=== PATIENT | female | born 1975 | race Caucasian/White ===

== ENCOUNTER 2019-12-06 07:18 | Outpatient (CLI) | payer BC, SELFPAY ==
--- NOTE | ~2019-12-06 | MM_ITS ---
EXAMINATION: MM screening darshan BI w daniel HISTORY: Screening mammogram, family history of breast cancer in her mother. TECHNIQUE: Craniocaudal and mediolateral oblique 3-D tomosynthesis images were obtained and synthetic 2-D images were generated. CAD analysis was submitted and interpreted. COMPARISON: 11/14/2018, 10/25/2017, 10/08/2016 BREAST PARENCHYMAL COMPOSITION: The breasts are almost entirely fatty. FINDINGS: There is no evidence of suspicious mass, calcification, or architectural distortion to sugg est malignancy in either breast. There has been no suspicious interval change. IMPRESSION: 1. No mammographic evidence of malignancy. 2. Recommend routine screening mammography in one year. BI-RADS Category 1: Negative Reviewed, dictated and finalized at location A. RECORDER
== END 2019-12-06 07:19 | disposition home or self-care (01) ==
PROVIDERS: PCP Family Medicine; Visit Provider Family Medicine
DX: Z12.31 Encounter for screening mammogram for malignant neoplasm of breast (principal)
CPT/HCPCS: 77063; 77067

== ENCOUNTER 2021-02-03 08:19 | Outpatient (CLI) | payer BC, SELFPAY ==
--- NOTE | ~2021-02-03 | MM_ITS ---
EXAMINATION: MM screening darshan BI w daniel HISTORY: Screening mammogram TECHNIQUE: Craniocaudal and mediolateral oblique 3-D tomosynthesis images were obtained and synthetic 2-D images were generated. CAD analysis was submitted and interpreted. COMPARISON: 12/06/2019, 11/14/2018, 10/25/2017 bilateral digital screening mammogram examinations BREAST PARENCHYMAL COMPOSITION: The breasts are almost entirely fatty. FINDINGS: There is no evidence of suspicious mass, calcification, or architectural distortion to sugg est malignancy in either breast. There has been no suspicious interval change. IMPRESSION: 1. No mammographic evidence of malignancy. 2. Recommend routine screening mammography in one year. BI-RADS Category 1: Negative Reviewed, dictated and finalized at location A.
== END 2021-02-03 08:20 | disposition home or self-care (01) ==
LOC: ANHIMG 08:22
PROVIDERS: PCP Family Medicine; Visit Provider Family Medicine
DX: Z12.31 Encounter for screening mammogram for malignant neoplasm of breast (principal)
CPT/HCPCS: 77063; 77067

== ENCOUNTER 2022-05-15 09:10 | Outpatient (CLI) | payer BC, SELFPAY ==
--- NOTE | ~2022-05-15 | MM_ITS ---
EXAMINATION: MM screening darshan BI w daniel HISTORY: Screening mammogram TECHNIQUE: Craniocaudal and mediolateral oblique 3-D tomosynthesis images were obtained and synthetic 2-D images were generated. Bilateral rotated lateral CC views. CAD analysis was submitted and interp reted. COMPARISON: 02/03/2021, 12/06/2019, 11/14/2018 bilateral screening mammogram examinations BREAST PARENCHYMAL COMPOSITION: There are scattered areas of fibroglandular density. FINDINGS: There is no evidence of suspicious mass, calcification, or architectural distortion to sugg est malignancy in either breast. There has been no suspicious interval change. IMPRESSION: 1. No mammographic evidence of malignancy. 2. Recommend routine screening mammography in one year. BI-RADS Category 1: Negative Reviewed, dictated and finalized at location A.
== END 2022-05-15 09:11 | disposition home or self-care (01) ==
LOC: ANHIMG 09:12
PROVIDERS: PCP Family Medicine; Visit Provider Obstetrics & Gynecology
DX: Z12.31 Encounter for screening mammogram for malignant neoplasm of breast (principal)
CPT/HCPCS: 77063; 77067

== ENCOUNTER 2022-11-24 10:19 | Emergency (ER) | payer BC, SELFPAY ==
--- NOTE | ~2022-11-24 | XR_ITS ---
EXAMINATION: XR abdomen/kub 1V INDICATION: Low back pain TECHNIQUE: Supine views of the abdomen were obtained on 2 radiographs. COMPARISON: None FINDINGS: No urolithiasis is identified. There is a phlebolith of the left pelvis. The bowel gas sera luz is normal. Lumbar spondylosis and mild lumbar levocurvature noted. IMPRESSION: 1. No urolithiasis identified. Reviewed, dictated and finalized at location A. SORTER
[2022-11-24 10:41] VITALS: BP 134/86; PULSE 75; RESP 18; TEMP 36.8; O2SAT 100
--- NOTE | 2022-11-24 10:52 | ED.GENADULT ---
HPI - General Adult General Chief complaint: Back Pain/Injury Stated complaint: back pain Time Seen by Provider: 11/24/22 10:52 Source: patient Mode of arrival: ambulatory Limitations: no limitations History of Present Illness HPI narrative: 47 year old female patient presents to the Urgent care with c/o left sided back pain. patient states she has had the back pain for about 2 weeks notes after she had contracted COVID. Patient's states she just thought it was joint pain from the virus. Patient states that she did go to her chiropractor about a week ago and got adjusted which her knees and hip pain did resolve after that but continued to have the left lower back pain. Patient states no numbness or tingling shooting down the legs. Patient denies any pain with urination or blood in the urine. Patient states she was taking some Tylenol for the pain and last night she did take some of her son's prescription meloxicam but states it did not help with the pain. Denies fevers, body aches or chills. Related Data Home Medications Medication Instructions Recorded Confirmed desogestrel 0.15 mg-ethinyl 1 tablet PO DAILY 11/24/22 11/24/22 estradiol 0.03 mg tablet (Isibloom) levothyroxine 75 mcg tablet 75 mcg PO DAILY 11/24/22 11/24/22 Allergies Allergy/AdvReac Type Severity Reaction Status Date / Time cefazolin Allergy Intermediate Rash Verified 11/24/22 10:49 doxycycline Allergy Unknown Hives Verified 11/24/22 10:49 Review of Systems Review of Systems: CONSTITUTIONAL: Denies fever, chills, or sweats. EYES: Denies visual changes, redness, or discharge. ENT: Denies rhinorrhea, congestion, sore throat, or otalgia. CARDIOVASCULAR: Denies chest pain, palpitations, or edema. RESPIRATORY: Denies cough or dyspnea. GASTROINTESTINAL: Denies abdominal pain, nausea, vomiting, or diarrhea. GENITOURINARY: Denies dysuria or hematuria. SKIN: Denies rash or itching. MUSCULOSKELETAL: positive left sided low back pain, deneis joint pain, or myalgia. NEUROLOGIC: Denies headache, numbness, or weakness. PSYCHIATRIC: Denies anxiety or depression. [facility] Past Medical History Medical History (Updated 11/24/22 @ 11:51 by JACLYN Young) Fracture left arm 2012 Hypothyroidism Knee pain torn ACL left knee 2011 Migraine Pneumonia as a child Surgical History Surgical History (Updated 11/24/22 @ 10:54 by JACLYN Young) History of orthopedic surgery ACL left knee 2012 Family History Family History Other Family history of cardiovascular disease Family history of malignant neoplasm Family history of malignant neoplasm of male breast Hypertension Social History Social History Smoking status: Never smoker Alcohol intake: current Comments At the time of my signature I agree with nursing past medical history, surgical, social, and family history. There is no relevant family history pertinent to the presenting complaint. Exam Narrative: GENERAL: Well-appearing, well-nourished, and in no acute distress. HEAD: Normocephalic, atraumatic. EYES: PERRLA and EOMI. ENT: Nares clear, no rhinorrhea or epistaxis. Mucous membranes moist. NECK: Supple. No lymphadenopathy CHEST: Clear to auscultation. No respiratory distress. HEART: Regular rate and rhythm. No murmur heard. Normal peripheral pulses. ABDOMEN: Soft, nontender, nondistended, normal active bowel sounds. EXTREMITIES: Normal range of motion. No edema. BACK: Patient is able to ambulated without assistance. Pt is seated on the stretcher in no obvouis distress. No surface trauma noted. No muscle tenderness to Palpation. No spasm or mass. No step-offs or deformity noted to the cervical, thoracic or lumbar spine to firm Palpation at the midline. very slight CVA tenderness to percussion on left side. No saddle anesthesia. ROM: able to stand erect. Normal flexion,
== END 2022-11-24 11:47 | disposition short-term general hospital (02) ==
PROVIDERS: Emergency Provider Nurse Practitioner Family; PCP Family Medicine
DX: M54.50 Low back pain, unspecified (principal); E03.9 Hypothyroidism, unspecified
CPT/HCPCS: 74018; 81003; 99213; G0463

== ENCOUNTER 2022-11-24 12:06 | Emergency (ER) | payer BC, SELFPAY ==
--- NOTE | ~2022-11-24 | CT_ITS ---
Non-contrast CT scan of the Abdomen and Pelvis Clinical indication: Left flank pain Technique: 5 mm axial scans were obtained through the abdomen and pelvis without intravenous or oral contrast. Dose reduction technique was used on this scan by utilizing automated exposure control and iterative reconstruction technique. The dose-length product (DLP) was 1077.39 mGy-cm. Findings: Images through the lung bases reveal no abnormalities. There is no evidence of renal or ureteral calculi. The kidneys and the ureters are nondilated. The liver, spleen, pancreas, gallbladder, and adrenals appear normal. There is no aortic aneurysm. There is no evidence of bowel obstruction. No evidence to suggest appendicitis. Images through the pelvis were performed. There is no evidence of ascites or lymphadenopathy. Urinary bladder unremarkable. No pelvic mass seen. Impression: No significant abnormality seen. Reviewed, dictated and finalized at [facility]. ESSIONS MANAGER Impression: No significant abnormality seen.
[2022-11-24 12:07] VITALS: BP 158/86; PULSE 66; RESP 18; TEMP 36.4; O2SAT 100
[2022-11-24 14:14] VITALS: BP 148/74; PULSE 79; RESP 20; TEMP 36.6; O2SAT 100
--- NOTE | 2022-11-24 14:23 | ED.GENADULT ---
HPI - General Adult General Chief complaint: Urogenital-Female Stated complaint: lower left back pain Time Seen by Provider: 11/24/22 14:10 Source: patient Mode of arrival: ambulatory Limitations: no limitations History of Present Illness HPI narrative: Patient is 47 years old white female presented to the ED with left lower flank pain started October 30, 2022. Dull aching, worse with certain movement and position, better with certain position, heating pad, massage gun. Intermittent nausea. History of hypothyroidism. Patient reported having COVID infection on October 23, on October 30 started having left lower back pain. Currently patient denies any fever, chills, nausea, vomiting, trouble urinating or radiation of pain. She denies any chest pain or shortness of breath or abdominal pain. Related Data Home Medications Medication Instructions Recorded Confirmed desogestrel 0.15 mg-ethinyl 1 tablet PO DAILY 11/24/22 11/24/22 estradiol 0.03 mg tablet (Isibloom) levothyroxine 75 mcg tablet 75 mcg PO DAILY 11/24/22 11/24/22 Allergies Allergy/AdvReac Type Severity Reaction Status Date / Time cefazolin Allergy Intermediate Rash Verified 11/24/22 14:19 doxycycline Allergy Unknown Hives Verified 11/24/22 14:19 Review of Systems Review of Systems: All systems reviewed & are unremarkable except as noted in HPI and below PMFSH Past Medical History Medical History Fracture left arm 2012 Hypothyroidism Knee pain torn ACL left knee 2011 Migraine Pneumonia as a child Surgical History Surgical History History of orthopedic surgery ACL left knee 2011 Family History Family History Other Family history of cardiovascular disease Family history of malignant neoplasm Family history of malignant neoplasm of male breast Hypertension Social History Social History Smoking status: Never smoker Alcohol intake: current Exam Narrative: General appearance: Well-developed, well-nourished Skin: Normal color Head: Normocephalic, nontraumatic Eyes: Clear conjunctiva ENT: Oropharynx normal, ears normal, nose normal Neck: Supple, nontender Chest and respiratory: Airway patent, no respiratory distress, no accessory muscle use Heart: Regular rate/rhythm Abdomen: Soft, nontender, no organomegaly, quiet bowel sounds Vascular: Normal peripheral pulses, normal capillary refill. Musculoskeletal: Normal range of motion, nontender back, no focal tenderness, no bruises, no swelling, no rash Neurologic: Alert and oriented ?3, THREAD CHECKER is normal as tested, no gross motor deficit Course Vital Signs Vital signs: Vital Signs Temperature 36.4 C 11/24/22 12:07 Pulse Rate 66 11/24/22 12:07 Respiratory Rate 18 11/24/22 12:07 Blood Pressure 158/86 H 11/24/22 12:07 Pulse Oximetry 100 11/24/22 12:07 Oxygen Delivery Room Air 11/24/22 12:07 Temperature 36.6 C 11/24/22 14:14 Pulse Rate 79 11/24/22 14:14 Respiratory Rate 20 11/24/22 14:14 Blood Pressure 148/74 H 11/24/22 14:14 Pulse Oximetry 100 11/24/22 14:14 Oxygen Delivery Room Air 11/24/22 14:14 Medical Decision Making [facility] Narrative Medical decision making narrative: Patient presents with left lower flank left lower back pain for the last 3 to 4 weeks, worse with certain position, musculoskeletal pain is my concern. UA and CT abdomen and pelvis without contrast to rule out the possibility of kidney stone showed no acute abnormalities. Patient will be d
[2022-11-24] MEDS: IBUPROFEN 600 MG TABLET PO (14:28)
[2022-11-24] MEDS: HYDROcodone/acetaminophen (*CRX) 5-325 MG TABLET 1 TAB PO (14:29)
[2022-11-24 14:52] LABS: Appearance Urine Clear (Clear); Bilirubin Urine Negative (Negative); Blood Urine Trace-lysed (Negative); Color Urine Yellow (Yellow); Glucose Urine UA Negative (Negative); Ketones Urine Negative (Negative); Leukocyte Esterase Ur Negative LEU/UL (Negative); Nitrate Urine Negative (Negative); Protein Urine Negative (Negative); Specific Grav Ur 1.015 (1.001-1.035); Urobilinogen Urine 0.2 mg/dL (<2.0); pH Urine 6.5 (5.0-9.0)
[2022-11-24 15:07] LABS: Bacteria Urine Trace /hpf; Mucus Urine Rare /lpf; RBC Urine 0-2 /hpf (0-2); Squamous Epithelial Cell Urine Occasional /hpf (Few); WBC Urine 0-3 /hpf
[2022-11-24 15:09] LABS: Add Urine Microscopic? YES
[2022-11-24 16:22] VITALS: BP 141/85; PULSE 70; RESP 16; O2SAT 100
== END 2022-11-24 16:33 | disposition home or self-care (01) ==
PROVIDERS: Emergency Provider Emergency Medicine; PCP Family Medicine
DX: M54.50 Low back pain, unspecified (principal); E03.9 Hypothyroidism, unspecified; Z86.16 Personal history of COVID-19; Z87.01 Personal history of pneumonia (recurrent)
CPT/HCPCS: 74176; 81001; 81025; 99284; A9270

== ENCOUNTER 2023-03-19 02:26 | Day surgery (SDC) | payer BC, SELFPAY ==
[2023-03-07 08:24] VITALS: BMI 36.8
[2023-03-19 08:41] VITALS: BP 145/81; PULSE 80; RESP 20; TEMP 36.6; O2SAT 100
[2023-03-19] MEDS: LACTATED RINGERS 1,000 ML 150 ML IV CONT (08:58)
--- NOTE | 2023-03-19 09:19 | WPDANESEPPF ---
Anes - Initial Pre Proc Eval Procedure: Operation Date: 03/19/23 09:45 Proposed Procedures p Screening Colonoscopy - Gallito Murphy MD Date/Time: 03/19/23 09:19 Surgeon: Gallito Murphy MD Pre Op Diagnosis: neoplasm screening Patient Data Age: 48 Gender: F Height: 1.73 m Weight: 110.4 kg Last Vital Signs Temp 97.8 F 03/19/23 08:41 Pulse 80 03/19/23 08:41 Resp 20 03/19/23 08:41 BP 145/81 H 03/19/23 08:41 Pulse Ox 100 03/19/23 08:41 O2 Del Method Room Air 03/19/23 08:41 Allergies Allergy/AdvReac Type Severity Reaction Status Date / Time cefazolin Allergy Intermediate Rash Verified 03/19/23 08:39 doxycycline Allergy Unknown Hives Verified 03/19/23 08:39 Home Medications Medication Instructions Recorded Confirmed Type desogestrel 0.15 mg-ethinyl 1 tablet PO DAILY 11/24/22 03/07/23 History estradiol 0.03 mg tablet (Isibloom) levothyroxine 75 mcg tablet 75 mcg PO DAILY 11/24/22 03/07/23 History ubrogepant 100 mg tablet (Ubrelvy) 100 mg PO ONCE PRN migraine 12/09/22 03/07/23 History headache Patient hx anesthesia problems: none Family hx anesthesia problems: none Results Review: All pre-operative results and documents have been reviewed as part of the pre-operative evaluation. [facility] Past Medical History Medical History (Updated 12/09/22 @ 15:51 by Leonardo Salmeron MD) Essential (primary) hypertension Fracture left arm 2012 Hyperlipidemia, unspecified Hypothyroidism Knee pain torn ACL left knee 2011 Migraine, unspecified, not intractable, without status migrainosus Morbid (severe) obesity due to excess calories Perioral dermatitis Pneumonia as a child Surgical History Surgical History History of orthopedic surgery ACL left knee 2011 Family History Family History Other Family history of cardiovascular disease Family history of malignant neoplasm Family history of malignant neoplasm of male breast Hypertension Social History Social History Smoking status: Never smoker Second hand tobacco smoke exposure: No Alcohol intake: current Alcohol use details: occasional social use Substance use: never Substance use type: does not use Lack of Transportation: No Lack of Food: Never True Current Housing: I Have Housing Concerned About Future Housing: No Difficulty Paying Gas/Electric Bills: No Difficulty Paying for Meds: No Currently Unemployed: No Difficulty w/ Childcare or Family Care: No Living arrangements: alone Occupation/Education: occupation Gender identity (if verbalized by the patient): Female Sexual Orientation (if Verbalized by the Patient): Straight or Heterosexual Spiritual care concerns: No Anes - Eval Final PreProcedure Day of Procedure 03/19/23 09:19 Patient weight: obese Heart: regular rate and rhythm Lungs: clear to auscultation Airway: Mallampati scale class II Neurological: alert and oriented Last oral intake: >/= 8 hours ASA classification: II Emergent: no Anesthetic plan: proceed Anesthesia type and monitoring: general GIVS and standard monitoring Results Review: All pre-operative results and documents have been reviewed as part of the pre-operative evaluation. Informed Consent: The patient's anesthetic plan and its attendant risks and benefits were discussed with the patient/family/POA. Questions were solicited and answers provided to the satisfaction of the patient/family/POA.
--- NOTE | 2023-03-19 09:22 | PM.HPGS ---
History of Present Illness History of Present Illness Consent: Risks, benefits, and alternatives have been discussed and questions answered. Patient agrees to proceed with procedure. Chief complaint: neoplasm screening Narrative: Ria Ortez is a 48 year old female here for first screening colonoscopy Review of Systems Constitutional: Constitutional: Denies headache(s) and Denies weakness Eyes: Eyes: Denies blurry vision ENT: Reports Normal hearing present, Denies headache(s) and Denies neck pain Cardiovascular: Cardiovascular: Denies chest pain and Denies dyspnea Respiratory: Respiratory: Denies dyspnea Gastrointestinal: Gastrointestinal: Reports no additional gastrointestinal complaints Genitourinary: Genitourinary: Denies dysuria Musculoskeletal: Musculoskeletal: Denies neck pain Integumentary/Breasts: Skin/Breast: Denies dry skin Neurologic: Reports Normal hearing present, Denies headache(s) and Denies weakness Psychiatric: Psychiatric: Denies anxiety Endocrine: Endocrine: Denies change in body appearance Hematologic/Lymphatic: Hematologic/Lymphatic: Denies easy bleeding Allergic/Immunologic: Allergic/Immunologic: Denies urticaria PMFSH Past Medical History Medical History (Updated 12/09/22 @ 15:51 by Leonardo Salmeron MD) Essential (primary) hypertension Fracture left arm 2012 Hyperlipidemia, unspecified Hypothyroidism Knee pain torn ACL left knee 2011 Migraine, unspecified, not intractable, without status migrainosus Morbid (severe) obesity due to excess calories Perioral dermatitis Pneumonia as a child Surgical History Surgical History History of orthopedic surgery ACL left knee 2011 Family History Family History Other Family history of cardiovascular disease Family history of malignant neoplasm Family history of malignant neoplasm of male breast Hypertension Social History Social History Smoking status: Never smoker Second hand tobacco smoke exposure: No Alcohol intake: current Alcohol use details: occasional social use Substance use: never Substance use type: does not use Lack of Transportation: No Lack of Food: Never True Current Housing: I Have Housing Concerned About Future Housing: No Difficulty Paying Gas/Electric Bills: No Difficulty Paying for Meds: No Currently Unemployed: No Difficulty w/ Childcare or Family Care: No Living arrangements: alone Occupation/Education: occupation Gender identity (if verbalized by the patient): Female Sexual Orientation (if Verbalized by the Patient): Straight or Heterosexual Spiritual care concerns: No Meds Home Medications and Allergies Home Medications Medication Instructions Recorded Confirmed Type desogestrel 0.15 mg-ethinyl 1 tablet PO DAILY 11/24/22 03/07/23 History estradiol 0.03 mg tablet (Isibloom) levothyroxine 75 mcg tablet 75 mcg PO DAILY 11/24/22 03/07/23 History ubrogepant 100 mg tablet (Ubrelvy) 100 mg PO ONCE PRN migraine 12/09/22 03/07/23 History headache Allergies Allergy/AdvReac Type Severity Reaction Status Date / Time cefazolin Allergy Intermediate Rash Verified 03/19/23 08:39 doxycycline Allergy Unknown Hives Verified 03/19/23 08:39 Vital Signs Vital Signs - 24 hr 03/19/23 08:41 Temperature 97.8 F Pulse Rate 80 Respiratory Rate 20 Blood Pressure 145/81 H Pulse Oximetry 100 Oxygen Delivery Room Air Exam Const: General: comfortable and no acute distress HENMT: Face/Nose/Sinus: Normal nares present Eyes: General: appearance normal, both eyes and all related structures Neck: Neck: no JVD Resp: Auscultation: clear to auscultation bilaterally Cardio: Rate: regular rate Rhythm: regular rhythm GI: Inspection: non-distended GI Palp: Yes Soft to palpatio
[2023-03-19 09:38] VITALS: BP 122/74; PULSE 79; RESP 20; O2SAT 98
[2023-03-19 09:48] VITALS: BP 138/79; PULSE 68; RESP 21; O2SAT 100
== END 2023-03-19 10:04 | disposition home or self-care (01) ==
PROVIDERS: PCP Family Medicine; Visit Provider Internal Medicine Gastroenterology
PROC: 0DJD8ZZ Inspection of Lower Intestinal Tract, Via Natural or Artificial Opening Endoscopic (ICD-10-PCS; CPT 45378; principal; 2023-03-19 09:45)
DX: Z12.11 Encounter for screening for malignant neoplasm of colon (principal); I10 Essential (primary) hypertension; E03.9 Hypothyroidism, unspecified; E78.5 Hyperlipidemia, unspecified; E66.9 Obesity, unspecified; Z68.37 Body mass index [BMI] 37.0-37.9, adult
CPT/HCPCS: 45378; J2704; J7120

== ENCOUNTER 2023-08-22 14:56 | Outpatient (CLI) | payer BC, SELFPAY ==
--- NOTE | ~2023-08-22 | MM_ITS ---
EXAMINATION: MM screening darshan BI w daniel HISTORY: Screening mammogram, family history of breast cancer in her mother. TECHNIQUE: Craniocaudal and mediolateral oblique 3-D tomosynthesis images were obtained and synthetic 2-D images were generated. CAD analysis was submitted and interpreted. COMPARISON: 05/15/2022, 02/03/2021, 12/06/2019 BREAST PARENCHYMAL COMPOSITION: There are scattered areas of fibroglandular density. FINDINGS: No suspicious mass, calcification, or architectural distortion are identified in either devin ast to suggest malignancy. There has been no suspicious interval change. IMPRESSION: 1. No mammographic evidence of malignancy. 2. Recommend routine screening mammography in one year. BI-RADS Category 1: Negative Reviewed, dictated and finalized at location A.
== END 2023-08-22 14:57 | disposition home or self-care (01) ==
LOC: ANHIMG 15:02
PROVIDERS: PCP Family Medicine; Visit Provider Family Medicine
DX: Z12.31 Encounter for screening mammogram for malignant neoplasm of breast (principal)
CPT/HCPCS: 77063; 77067

== ENCOUNTER 2024-12-25 11:26 | Emergency (ER) | payer BC, SELFPAY ==
--- OUTSIDE RECORDS SUMMARY | 2024-12-25 11:28 | XMS_ITS | Clinical Summary ---
Author Organization [facility] Address [address] [place] [address] Care Team Providers Care Rehab Manager Name Role Phone Leonardo Salmeron MD Primary Care Provider [phone] Allergies No known active allergies Medications predniSONE (DELTASONE) 10 mg tabletIndicati ons:for 7 days decreasing dose Take 10 mg by mouth see administration instructions. Active diphenhydrAMIN E (BANOPHEN) 50 mg capsule Take 50 mg by mouth daily at bedtime. Active Active Problems Problem Noted Date Diagnosed Date Spider bite 02/03/2018 Macromastia 02/03/2018 Family History Medical History Relation Name Comments Heart Disease Father Breast Cancer Mother Heart Disease Mother Relation Name Status Comments Brother 1 Alive Brother 2 Alive Brother 3 Alive Father Mother Sister 1 Alive Sister 2 Alive Social History Tobacco Use Types Packs/Day Years Used Date Smoking Tobacco: Never Smokeless Tobacco: Never Alcohol Use Standard Drinks/Week Comments Yes 2 (1 standard drink = 0.6 oz pur e alcohol) occassionally Comments No Sex and Gender Information Value Date Recorded Sex Assigned at Not on file Legal Sex Female 9:00 AM CDT Gender Identity Not on file Sexual Orientation Not on file Last Filed Vital Signs Vital Sign Reading Time Taken Comments Blood Pressure 121/88 02/25/2018 2:19 PM CDT Pulse 84 02/25/2018 2:19 PM CDT Temperature 36.9 C (98.4 F) 02/25/2018 2:19 PM CDT Respiratory Rate - - Oxygen Saturation 98% 02/25/2018 2:19 PM CDT Inhaled Oxygen Concentration - - Weight 115.5 kg (254 lb 11.2 oz) 02/25/2018 2:19 PM CDT Height 172.7 cm (5' 8 ) 02/25/2018 2:19 PM CDT Body Mass Index 38.73 02/25/2018 2:19 PM CDT Plan of Treatment Health Maintenance Due Date Last Done Comments DTAP/TDAP/TD VACCINES (1 - Tdap) 1993 HEPATITIS B VACCINES (1 of 3 - 19+ 3-dose series) 1993 CERVICAL CANCER SCREENING 02/12/2004 BREAST CANCER SCREENING 2014 COLORECTAL SCREENING 2019 Colorectal Cancer Screening 2019 FIT-DNA Q 3 years 2019 FIT/FOBT Q 1 year 2019 Flex Sig/CT Colonography Q 5 years 2019 ZOSTER VACCINE (1 of 2) 02/12/2024 INFLUENZA VACCINE (#1) 2024 PNEUMOCOCCAL VACCINE 0-49 YEARS Aged Out No longer eligible based on patient's age to complete this topic Insurance [facility] BLUE ACCESS/TRUE BLUE PPO Care Teams Rehab Manager Relationship Specialty Start Date End Date Leonardo Salmeron MD [address] [place] [address] ERICA Li [id number] PCP - General Family Practice 02/03/18
[2024-12-25 11:42] VITALS: BP 147/80; PULSE 75; RESP 18; TEMP 36.7; O2SAT 100
--- NOTE | 2024-12-25 12:06 | ED.URI ---
HPI - URI/Sore Throat General Chief Complaint: Upper Respiratory Infection Stated Complaint: cough Source: patient Mode of arrival: ambulatory Limitations: no limitations History of Present Illness HPI Narrative: 49-year-old female presents to [facility] with complaints of productive cough with clear colored phlegm, headache and intermittent shortness of breath for the past week. Patient takes Zyrtec daily. Patient also has been taking [id number] Mucinex, NyQuil and leftover Tylenol with little relief. Patient denies wheezing or fever. Patient is a nonsmoker. Patient denies recent travel. Patient denies sick contacts. MD elicited complaint: cough Onset (ago): week(s) (1) Treatments prior to arrival: cold medicine Related Data Home Medications ?Medication ?Instructions ?Recorded ?Confirmed ?Last Taken ?Type ubrogepant 100 mg tablet (Ubrelvy) 100 mg PO ONCE PRN migraine 12/09/22 12/22/23 Unknown History headache Allergies Allergy/AdvReac Type Severity Reaction Status Date / Time cefazolin Allergy Mild Rash Verified 12/25/24 11:28 doxycycline Allergy Mild Hives Verified 12/25/24 11:28 Review of Systems Constitutional: Constitutional: Denies chills, Denies fatigue, Denies fever(s) and Denies weakness ENT: Denies dizziness, Denies epistaxis and Denies nasal congestion Cardiovascular: Cardiovascular: Denies chest pain Respiratory: Respiratory: Denies chest congestion, Reports cough, Reports dyspnea and Denies wheezing Gastrointestinal: Gastrointestinal: Denies diarrhea, Denies nausea and Denies vomiting Integumentary/Breasts: Skin/Breast: Denies erythema and Denies rash Neurologic: Denies dizziness, Denies syncope and Reports headache(s) [facility] Past Medical History Medical History Migraine, unspecified, not intractable, without status migrainosus Essential (primary) hypertension Hyperlipidemia, unspecified Morbid (severe) obesity due to excess calories Perioral dermatitis Hypothyroidism Knee pain torn ACL left knee 2011 Fracture left arm 2013 Pneumonia as a child Surgical History Surgical History History of orthopedic surgery ACL left knee 2011 Family History Family History Other Family history of cardiovascular disease Family history of malignant neoplasm Family history of malignant neoplasm of male breast Hypertension Social History Social History Smoking status: Never smoker Second hand tobacco smoke exposure: No Alcohol intake: current Alcohol use details: occasional social use Substance use: never Substance use type: does not use Do You Feel Safe in your Home?: Yes Lack of Transportation: No Lack of Food: Never True Current Housing: I Have Housing Concerned About Future Housing: No Difficulty Paying Gas/Electric Bills: No Difficulty Paying for Meds: No Currently Unemployed: No Education: Master's Degree or Higher Difficulty w/ Childcare or Family Care: No Living arrangements: alone Occupation/Education: occupation Gender identity (if verbalized by the patient): Female Sexual Orientation (if Verbalized by the Patient): Straight or Heterosexual Spiritual care concerns: No Comments At time of signature, I agree with nursing past medical, surgical, social and family history. There is no relevant family history pertinent to the presenting complaint. Exam Const: General: healthy appearing and no acute distress Nutritional Appearance: well nourished Orientation/consciousness: patient oriented x3 Limitations: no limitations HENMT: Head: normal to inspection Ears: external ears normal, TM's normal bilaterally and EAC's normal Face and sinus: normal facial exam Mouth: Yes Normal oral and palatal mucosa present and Yes lip normal Throat: posterior oropharynx normal and uvula midline Eyes: Conjunctivae: conjunctivae normal Neck: Neck: normal visual inspection Resp: Effort & Inspection: normal respiratory effort and not labored Auscultation: clear to auscultation bilaterally, no crackles, no rales, no rhonchi and no wheezes Cardio: Rate: regular rate Rhythm: regular rhythm Heart sounds: no murmurs Skin: General skin exam: normal color Rashes: no rashes Neuro: General: patient oriented x3, moves all extremities and no meningeal signs Speech: normal speech Extrem: General: normal to inspection Psych: Mental Status: mental status grossly normal Affect: normal affect Attitude: cooperative Course Course Level of Care: Express Care Visit Vital Signs Vital signs: Vital Signs Temperature 36.7 C 12/25/24 11:42 Pulse Rate 75 12/25/24 11:42 Respiratory Rate 18 12/25/24 11:42 Blood Pressure 147/80 H 12/25/24 11:42 Pulse Oximetry 100 12/25/24 11:42 Oxygen Delivery Room Air 12/25/24 11:42 Temperature 36.7 C 12/25/24 11:42 Pulse Rate 75 12/25/24 11:42 Respiratory Rate 18 12/25/24 11:42 Blood Pressure 147/80 H 12/25/24 11:42 Pulse Oximetry 100 12/25/24 11:42 Oxygen Delivery Room Air 12/25/24 11:42 MDM - URI/Sore Throat MDM Narrative Medical decision making narrative: Patient reports having negative COVID and flu testing at home. Will place patient on antibiotic and cough medication due to symptoms and length of onset. Patient agrees to follow-up with primary care provider if symptoms not improved Differential Diagnosis Differential diagnosis: Likely viral infection, bronchitis and influenza Critical Care Time Critical Care Time Critical Care Time: No Discharge Plan Discharge Clinical Impression: Upper respiratory infection Qualifiers: URI type: unspecified URI Qualified Code(s): J06.9 - Acute upper respiratory infection, unspecified Patient Disposition: Home, Self-Care Condition: Stable Instructions: Antibiotic Form, Upper Respiratory Infection (ED) Additional Instructions: Take antibiotic as prescribed Use cough medication as needed Follow-up with primary care provider if symptoms not improved Proceed to the emergency room if symptoms worsen Patient Language: Lithuanian Prescriptions: New azithromycin [Zithromax Z-Samir] 250 mg tablet See Rx Instructions .ROUTE .COMPLEX Qty: 6 0RF Rx Instructions: For 250 mg dose pack: take 500 mg today (day 1), then 250 mg for 4 days (days 2-5) benzonatate 100 mg capsule 100 mg PO TID PRN (Reason: cough) Qty: 20 0RF No Action Ubrelvy 100 mg tablet 100 mg PO ONCE PRN (Reason: migraine headache) benzonatate 200 mg capsule 200 mg PO TID PRN (Reason: cough) Qty: 30 0RF levothyroxine 75 mcg tablet 75 mcg PO DAILY Qty: 90 1RF desogestrel-ethinyl estradiol [Isibloom] 0.15-0.03 mg tablet 1 tablet PO DAILY Qty: 84 1RF Follow-up/Referrals: Leonardo Salmeron MD [Primary Care Provider] - Time of Disposition: 12:12
== END 2024-12-25 12:15 | disposition home or self-care (01) ==
PROVIDERS: Emergency Provider Nurse Practitioner Family; PCP Family Medicine
DX: J06.9 Acute upper respiratory infection, unspecified (principal); I10 Essential (primary) hypertension; E78.5 Hyperlipidemia, unspecified; E03.9 Hypothyroidism, unspecified
CPT/HCPCS: 99213; G0463

== ENCOUNTER 2025-01-17 15:37 | Outpatient (CLI) | payer BC, SELFPAY ==
--- NOTE | ~2025-01-17 | MM_ITS ---
EXAMINATION: MM screening darshan BI w daniel HISTORY: Screening mammogram, family history of breast cancer in her mother. TECHNIQUE: Craniocaudal and mediolateral oblique 3-D tomosynthesis images were obtained and synthetic 2-D images were generated. CAD analysis was submitted and interpreted. COMPARISON: 08/22/2023, 05/15/2022, 02/03/2021, 12/06/2019 BREAST PARENCHYMAL COMPOSITION:Not Dense. The breasts are almost entirely fatty FINDINGS: No suspicious mass, calcification, or architectural distortion are identified in either devin ast to suggest malignancy. There has been no suspicious interval change. IMPRESSION: No mammographic evidence of malignancy. Recommend routine screening mammography in one year. BI-RADS Category 1: Negative Reviewed, dictated and finalized at location .
--- OUTSIDE RECORDS SUMMARY | 2025-01-17 17:05 | XMS_ITS | Clinical Summary ---
Author Organization [facility] Address [address] [place] [address] Care Team Providers Care Field Account Director Name Role Phone Leonardo Salmeron MD Primary Care Provider Allergies No known active allergies Medications predniSONE [...] of 3 - 19+ 3-dose series) 1993 PAP SMEAR 1995 CERVICAL CANCER SCREENING 02/12/2004 HPV/Cotest (30-65) 02/12/2004 PAP SMEAR 02/12/2004 BREAST CANCER SCREENING 2014 COLORECTAL SCREENING 2019 Colorectal Cancer Screening 2019 FIT-DNA Q 3 years 2019 FIT/FOBT Q 1 year 2019 Flex Sig/CT Colonography Q 5 years 2019 ZOSTER VACCINE (1 of 2) 02/12/2024 INFLUENZA VACCINE (#1) 2024 PNEUMOCOCCAL VACCINE 0-49 YEARS Aged Out No longer eligible based on patient's age to complete this topic Insurance [facility] BLUE ACCESS/TRUE BLUE PPO Care Teams Field Account Director Relationship Specialty Start Date End Date Leonardo Salmeron MD [address] [place] [address] ER[place] Christensen [phone] PCP - General Family Practice 02/03/18
== END 2025-01-17 15:38 | disposition home or self-care (01) ==
LOC: ANHIMG 15:39
PROVIDERS: PCP Family Medicine; Visit Provider Obstetrics & Gynecology
DX: Z12.31 Encounter for screening mammogram for malignant neoplasm of breast (principal)
CPT/HCPCS: 77063; 77067

== ENCOUNTER 2025-06-30 16:45 | Emergency (ER) | payer BC, SELFPAY ==
--- NOTE | ~2025-06-30 | XR_ITS ---
XR knee LT min 4V 06/30/2025 17:14 Indication: Medial knee pain. History of ACL repair Procedure: 4 views left knee Comparison: No prior studies for comparison. Findings: There is moderate tricompartment osteoarthritis. There are changes of ACL repair. No acute fracture, subluxation or dislocation. No significant joint effusion. Impression: 1: Moderate tricompartment osteoarthritis. Reviewed, dictated and finalized at location O. Impression: 1: Moderate tricompartment osteoarthritis.
[2025-06-30 16:53] VITALS: BP 126/86; PULSE 68; RESP 18; TEMP 36.2; O2SAT 99
--- OUTSIDE RECORDS SUMMARY | 2025-06-30 16:56 | XMS_ITS | Clinical Summary ---
Author Organization [facility] Address [address] [place] [address] Care Team Providers Care Town Planner Name Role Phone Leonardo Salmeron MD Primary [...] 2:19 PM CDT Height 172.7 cm (5' 8) 02/25/2018 2:19 PM CDT Body Mass Index 38.73 02/25/2018 2:19 PM CDT Plan of Treatment Health Maintenance Due Date Last Done Comments DTAP/TDAP/TD VACCINES (1 - Tdap) 1993 HEPATITIS B VACCINES (1 of 3 - 19+ 3-dose series) 01/19 HPV/Cotest (21-29) 1995 CERVICAL CANCER SCREENING 02/12/2004 HPV/Cotest (30-65) 02/12/2004 PAP SMEAR 02/12/2004 BREAST CANCER SCREENING 2014 COLORECTAL SCREENING 2019 Colorectal Cancer Screening 2019 FIT-DNA Q 3 years 2019 FIT/FOBT Q 1 year 2019 Flex Sig/CT Colonography Q 5 years 2019 ZOSTER VACCINE (1 of 2) 02/12/2024 INFLUENZA VACCINE (#1) 2025 Insurance [facility] BLUE ACCESS/TRUE BLUE PPO Care Teams Town Planner Relationship Specialty Start Date End Date Leonardo Salmeron MD [address] [place] [address] [place] [id number] PCP - General Family Practice 02/03/18
--- NOTE | 2025-06-30 17:08 | ED.EXTPRO ---
HPI - Extremity Problem General Chief complaint: Extremity Injury, Lower Stated complaint: LT Knee Pain Time Seen by Provider: 06/30/25 16:59 Source: patient and RN notes reviewed Mode of arrival: ambulatory Limitations: no limitations History of Present Illness HPI Narrative: Patient presents today complaining of left medial knee pain x5 days. Denies injury or trauma. States pain with little bit better yesterday when she was able to rest it for most the day, but then worsened again today. Denies injury or trauma. Rates her pain 4/10 at rest, which increases with weight-bearing. She has tried Tylenol and ibuprofen with minimal improvement. She had an ACL repair on the affected [place] [address] Tidwell. Related Data Home Medications ?Medication ?Instructions ?Recorded ?Confirmed ?Last Taken ?Type ubrogepant 100 mg tablet (Ubrelvy) 100 mg PO ONCE PRN migraine 12/09/22 03/17/25 Unknown History headache Allergies Allergy/AdvReac Type Severity Reaction Status Date / Time cefazolin Allergy Mild Rash Verified 06/30/25 16:53 doxycycline Allergy Mild Hives Verified 06/30/25 16:53 PMFSH Past Medical History Medical History Anemia, unspecified Migraine, unspecified, not intractable, without status migrainosus Essential (primary) hypertension Hyperlipidemia, unspecified Morbid (severe) obesity due to excess calories Perioral dermatitis Hypothyroidism Knee pain torn ACL left knee 2011 Fracture left arm 2013 Pneumonia as a child Surgical History Surgical History History of orthopedic surgery ACL left knee 2011 Family History Family History Other Family history of cardiovascular disease Family history of malignant neoplasm Family history of malignant neoplasm of male breast Hypertension Social History Social History Smoking status: Never smoker Second hand tobacco smoke exposure: No Alcohol intake: current Alcohol use details: occasional social use Substance use: never Substance use type: does not use Do You Feel Safe in your Home?: Yes Lack of Transportation: No Lack of Food: Never True Current Housing: I Have Housing Concerned About Future Housing: No Difficulty Paying Gas/Electric Bills: No Difficulty Paying for Meds: No Currently Unemployed: No Education: Master's Degree or Higher Difficulty w/ Childcare or Family Care: No Living arrangements: alone Occupation/Education: occupation Gender identity (if verbalized by the patient): Female Sexual Orientation (if Verbalized by the Patient): Straight or Heterosexual Spiritual care concerns: No Comments At time of signature, I have reviewed and agree with nursing past medical, surgical, social and family history unless otherwise noted. Please see nursing chart for further information. There is no relevant family history pertinent to the presenting complaint Exam Narrative: GENERAL: Well-appearing, well-nourished, and in no acute distress. HEAD: Normocephalic, atraumatic. EYES: EOMI. No redness or drainage. Conjunctivae normal. ENT: Mucous membranes pink and moist. NECK: Normal AROM. CHEST: No respiratory distress. EXTREMITIES: Left knee: Tenderness along the medial joint line. No bony tenderness of the patella. No tenderness to the patellar tendon or lateral joint line. No tenderness posteriorly. No obvious edema, erythema, ecchymosis. Pain to the affected area with P ROM in all directions. Distal sensation intact. Capillary refill normal. Pedal pulse normal. SKIN: Warm, dry, no rash. Capillary refill normal. Normal skin turgor. NEURO: No focal deficits. Alert and oriented x3. Gait steady. PSYCH: Normal affect. No signs of depression or anxiety. Course Course Level of Care: Express Care Visit Vital Signs Vital signs: Vital Signs Temperature 97.2 F L 06/30/25 16:53 Pulse Rate 68 06/30/25 16:53 Respiratory Rate 18 06/30/25 16:53 Blood Pressure 126/86 06/30/25 16:53 Pulse Oximetry 99 06/30/25 16:53 Oxygen Delivery Room Air 06/30/25 16:53 Temperature 97.2 F L 06/30/25 16:53 Pulse Rate 68 06/30/25 16:53 Respiratory Rate 18 06/30/25 16:53 Blood Pressure 126/86 06/30/25 16:53 Pulse Oximetry 99 06/30/25 16:53 Oxygen Delivery Room Air 06/30/25 16:53 Reviewed MDM - Extremity (Nontraumatic) MDM Narrative Medical decision making narrative: 50yo female patient presents today complaining of 5 day hx of right medial knee pain without injury or trauma. Hx of ACL repair in same knee by Dr. Tidwell in 2011. Upon exam, there is tenderness to the medial joint line, and pain with ROM medially. Xray shows moderate tricompartmental osteoarthritis. Will start on Mobic and recommend orthopedic followup along with conservative measures for symptom control. Patient agrees with plan. Would like to return to Dr. Tidwlel. Anticipatory guidance given. VSS. Differential Diagnosis Differential diagnosis: Likely other (ligamentous injury, meniscus injury, osteoarthritis) Imaging Data Radiologist's impression: ITS Impressions Knee X-Ray 06/30/25 17:15 Impression: 1: Moderate tricompartment osteoarthritis. Critical Care Time Critical Care Time Critical Care Time: No Discharge Plan Discharge Clinical Impression: Osteoarthritis of left knee Qualifiers: Osteoarthritis type: unspecified Qualified Code(s): M17.12 - Unilateral primary osteoarthritis, left knee Patient Disposition: Home Condition: Stable Instructions: Osteoarthritis (DC) Additional Instructions: Your x-ray shows some moderate arthritis of your left knee. This may or may not be causing your acute pain. Take the meloxicam as prescribed for your discomfort. Elevate and ice the knee. Follow-up with orthopedics for further evaluation and treatment. Your blood pressure was elevated above 120/80 today at Urgent Care. This puts you above the threshold for follow up. Please schedule a followup visit with your personal physician as soon as possible, for further evaluation and treatment. Even blood pressure exceeding 120/80 may indicate pre-hypertension. Patient Language: Slovak Prescriptions: New meloxicam 15 mg tablet 15 mg PO DAILY Qty: 30 0RF No Action Ubrelvy 100 mg tablet 100 mg PO ONCE PRN (Reason: migraine headache) levothyroxine 75 mcg tablet 75 mcg PO DAILY Qty: 90 1RF desogestrel-ethinyl estradiol [Isibloom] 0.15-0.03 mg tablet 1 tablet PO DAILY Qty: 84 1RF Zepbound 7.5 mg/0.5 mL pen injector 7.5 mg subcut WEEKLY Qty: 2 0RF Follow-up/Referrals: Leonardo Salmeron MD [Primary Care Provider, Family Practice] Jhony Tidwell MD [Physician, Orthopedics] Time of Disposition: 17:32
== END 2025-06-30 17:35 | disposition home or self-care (01) ==
PROVIDERS: Emergency Provider Nurse Practitioner; PCP Family Medicine
DX: M17.12 Unilateral primary osteoarthritis, left knee (principal); I10 Essential (primary) hypertension; E78.5 Hyperlipidemia, unspecified; E03.9 Hypothyroidism, unspecified; E66.01 Morbid (severe) obesity due to excess calories; Z68.36 Body mass index [BMI] 36.0-36.9, adult
CPT/HCPCS: 73564; 99213; G0463